=== PATIENT | female | born 1990 | race Asian ===

== ENCOUNTER 2018-03-10 06:22 | Inpatient (IN) | payer BC, OTHER ==
[~2018-03-10] VITALS: Ht 162.6 cm; Wt 72.7 kg
[2018-03-10] MEDS: LACTATED RINGERS 1,000 ML IV SCH ×2 (06:31→08:45)
[2018-03-10] MEDS ORDERED: OXYTOCIN 30U/ 0.9% NaCL 500ML 500 ML IV ONE (06:31)
[2018-03-10] MEDS ORDERED: MISOPROSTOL 200 MCG TABLET ONE (06:32)
[2018-03-10] MEDS ORDERED: NEWBORN KIT ONE (06:32)
[2018-03-10] MEDS ORDERED: LIDOCAINE 1%, 50ML ONE (06:32)
[2018-03-10] MEDS ORDERED: FENTANYL/BUPIV./NS/PF 250 ML EPIDCONT SCH (06:36)
[2018-03-10] MEDS ORDERED: LACTATED RINGERS 1,000 ML IV SCH (06:36)
[2018-03-10] MEDS ORDERED: OXYTOCIN 30U/ 0.9% NaCL 500ML 500 ML ONE ×2 (06:38→08:42)
[2018-03-10 06:53] LABS: BASOPHILS % (AUTO) 1 % (0-1); EOSINOPHILS % (AUTO) 4 % (1-7); LYMPHOCYTES % (AUTO) 29 % (22-44); MD NO; MEAN CORPUSCULAR HEMOGLOBIN 30.6 pg (27.0-34.8); MEAN CORPUSCULAR HGB CONC 33.7 g/dL (32.4-35.8); MEAN CORPUSCULAR VOLUME 90.6 fL (80-100); MEAN PLATELET VOLUME 9.6 fL (7.4-10.4); MONOCYTES % (AUTO) 6 % (2-9); NEUTROPHILS # (AUTO) 5.93 x10^3/uL (1.8-6.8); NEUTROPHILS % (AUTO) 60 % (42-75); PLATELET COUNT 193 x10^3/uL (130-400); RED CELL DISTRIBUTION WIDTH 13.2 % (9.6-15.2)
[2018-03-10 06:58] LABS: MICROSCOPIC INDICATED
[2018-03-10] MEDS ORDERED: LACTATED RINGERS 1,000 ML IVBOLUS PRN (07:00)
[2018-03-10] MEDS ORDERED: FENTANYL PF 100 MCG/2ML IV PRN (07:00)
[2018-03-10] MEDS ORDERED: FENTANYL PF 100 MCG/2ML IVPush PRN (07:00)
[2018-03-10] MEDS ORDERED: ONDANSETRON 2MG/ML, 2ML IVPush PRN (07:00)
[2018-03-10 07:03] LABS: AMPHETAMINE SCREEN, URINE Negative (Negative); BARBITURATE SCREEN, URINE Negative (Negative); BENZODIAZEPINE SCREEN, URINE Negative (Negative); CANNABINOID SCREEN, URINE Positive (Negative); COCAINE SCREEN, URINE Negative (Negative); METHADONE SCREEN, URINE Negative (Negative); OPIATE SCREEN, URINE Negative (Negative)
[2018-03-10 07:04] LABS: ALBUMIN 2.3 g/dL (3.4-5.0); ANION GAP 8 mmol/L (5-15); BILIRUBIN, DIRECT 0.1 mg/dL (0.1-0.2); CALCIUM 8.8 mg/dL (8.5-10.1); CHLORIDE 110 mmol/L (98-107)
[2018-03-10] MEDS ORDERED: BUPIVACAINE 0.25% ONE (07:08)
[2018-03-10 07:12] LABS: ALANINE AMINOTRANSFERASE 21 U/L (12-78); ALKALINE PHOSPHATASE 187 U/L (45-117); BILIRUBIN,TOTAL 0.2 mg/dL (0.2-1.0); TOTAL PROTEIN 6.4 g/dL (6.4-8.2)
[2018-03-10] MEDS ORDERED: FENTANYL PF 100 MCG/2ML ONE (07:16)
[2018-03-10] MEDS ORDERED: IBUPROFEN 600 MG TABLET ONE (09:41)
[2018-03-10] MEDS: OXYTOCIN 30U/ 0.9% NaCL 500ML 500 ML IV SCH ×7 (10:55→20:55)
[2018-03-10] MEDS ORDERED: OXYcodone/APAP 5/325MG TABLET ONE (10:57)
[2018-03-10 11:00] VITALS: BP 132/89
[2018-03-10] MEDS ORDERED: MEASLES,MUMPS&RUBELLA VACC/PF 0.5 ML SQ PRN (11:00)
[2018-03-10] MEDS ORDERED: MISOPROSTOL 200 MCG TABLET PR PRN (11:00)
[2018-03-10] MEDS ORDERED: OXYcodone/APAP 5/325MG TABLET PO PRN ×2 (11:00)
[2018-03-10] MEDS ORDERED: BISACODYL 10 MG SUPP PR PRN (11:00)
[2018-03-10] MEDS ORDERED: ONDANSETRON 2MG/ML, 2ML IV PRN (11:00)
[2018-03-10] MEDS ORDERED: ACETAMINOPHEN 325 MG TABLET PO PRN ×2 (11:00)
[2018-03-10] MEDS ORDERED: CALCIUM CARBONATE 500 MG TAB.CHEW PO PRN (11:00)
[2018-03-10] MEDS ORDERED: morphine SULFATE 10 MG/ML, 1ML ONE (15:45)
[2018-03-10] MEDS ORDERED: ONDANSETRON 2MG/ML, 2ML ONE (15:50)
[2018-03-10] MEDS ORDERED: morphine SULFATE 10 MG/ML, 1ML IVPush PRN (16:00)
[2018-03-10 16:07] LABS: BASOPHILS # (AUTO) 0.04 x10^3/uL (0-0.1); BASOPHILS % (AUTO) 0 % (0-1); EOSINOPHILS # (AUTO) 0.03 x10^3/uL (0-0.4); EOSINOPHILS % (AUTO) 0 % (1-7); LYMPHOCYTES # (AUTO) 2.04 x10^3/uL (1-3.4); LYMPHOCYTES % (AUTO) 12 % (22-44); MD NO; MEAN CORPUSCULAR HEMOGLOBIN 31.1 pg (27.0-34.8); MEAN CORPUSCULAR HGB CONC 34.1 g/dL (32.4-35.8); MEAN CORPUSCULAR VOLUME 91.4 fL (80-100); MEAN PLATELET VOLUME 9.9 fL (7.4-10.4); MONOCYTES % (AUTO) 4 % (2-9); NEUTROPHILS # (AUTO) 14.26 x10^3/uL (1.8-6.8); NEUTROPHILS % (AUTO) 84 % (42-75); PLATELET COUNT 190 x10^3/uL (130-400); RED BLOOD COUNT 4.62 x10^6/uL (3.82-5.3); RED CELL DISTRIBUTION WIDTH 13.1 % (9.6-15.2)
[2018-03-10 16:16] LABS: ALANINE AMINOTRANSFERASE 24 U/L (12-78); ALBUMIN 2.4 g/dL (3.4-5.0); ANION GAP 10 mmol/L (5-15); CALCIUM 8.3 mg/dL (8.5-10.1); CHLORIDE 103 mmol/L (98-107); CREATININE 0.78 mg/dL (0.55-1.02)
[2018-03-10 16:20] LABS: ALKALINE PHOSPHATASE 195 U/L (45-117); BILIRUBIN,TOTAL 0.4 mg/dL (0.2-1.0); TOTAL PROTEIN 6.6 g/dL (6.4-8.2)
[2018-03-10 16:37] LABS: MICROSCOPIC NOT IND
[2018-03-10 16:48] LABS: TOTAL PROTEIN,URINE RANDOM 8 mg/dL (0-12)
[2018-03-10 16:52] LABS: CREATININE,URINE RANDOM < 13.00 mg/dL; PROTEIN/CREATININE RATIO,URINE 615 (0-200)
[2018-03-10 17:25] VITALS: BP 95/61
[2018-03-10 19:05] VITALS: BP 146/83
[2018-03-10] MEDS: DOCUSATE 100 MG CAPSULE PO PRN (19:11)
[2018-03-10] MEDS: IBUPROFEN 600 MG TABLET PO PRN (19:11)
[2018-03-10] MEDS ORDERED: HYDROcodone/APAP 5/325 TABLET PO PRN (20:30)
[2018-03-10] MEDS ORDERED: hydrOXyzine 10MG TABLET PO PRN (20:30)
[2018-03-10 23:23] VITALS: BP 95/57
[2018-03-11] MEDS: IBUPROFEN 600 MG TABLET PO PRN ×4 (01:42→23:44)
[2018-03-11 04:45] VITALS: BP 109/65
[2018-03-11] MEDS: OXYTOCIN 30U/ 0.9% NaCL 500ML 500 ML IV SCH ×2 (06:55→16:55)
[2018-03-11 07:40] VITALS: BP 110/69
[2018-03-11] MEDS: DOCUSATE 100 MG CAPSULE PO PRN (09:36)
[2018-03-11] MEDS: PRENATAL VIT/IRON/FA 1 EACH TABLET PO SCH (09:36)
[2018-03-11 16:52] VITALS: BP 127/77
[2018-03-11 20:45] VITALS: BP 116/7
[2018-03-12] MEDS: OXYTOCIN 30U/ 0.9% NaCL 500ML 500 ML IV SCH ×2 (02:55→12:55)
[2018-03-12] MEDS: IBUPROFEN 600 MG TABLET PO PRN ×2 (05:34→14:58)
[2018-03-12 07:30] VITALS: BP 115/73
[2018-03-12] MEDS: PRENATAL VIT/IRON/FA 1 EACH TABLET PO SCH (09:00)
[2018-03-12] MEDS ORDERED: IBUP-1222 PO (11:43)
[2018-03-12] MEDS ORDERED: DOCU-131 PO (11:43)
== END 2018-03-12 16:14 | disposition home or self-care (01) | DRG 775 ==
LOC: LDOP 06:22 → LDIP 06:31 → 2NW 10:55
PROVIDERS: ADMIT Obstetrics & Gynecology; ATTEND Obstetrics & Gynecology
PROC: 10E0XZZ Delivery of Products of Conception, External Approach (ICD-10-PCS; principal; 2018-03-10)
PROC: 0HQ9XZZ Repair Perineum Skin, External Approach (ICD-10-PCS; 2018-03-10)
PROC: 10H073Z Insertion of Monitoring Electrode into Products of Conception, Via Natural or Artificial Opening (ICD-10-PCS; 2018-03-10)
PROC: 4A1H74Z Monitoring of Products of Conception, Cardiac Electrical Activity, Via Natural or Artificial Opening (ICD-10-PCS; 2018-03-10)
DX: O34.211 Maternal care for low transverse scar from previous cesarean delivery (principal); O99.324 Drug use complicating childbirth; O76 Abnormality in fetal heart rate and rhythm complicating labor and delivery; F41.0 Panic disorder [episodic paroxysmal anxiety]; O99.344 Other mental disorders complicating childbirth; F12.90 Cannabis use, unspecified, uncomplicated; Z37.0 Single live birth; Z3A.38 38 weeks gestation of pregnancy; O70.0 First degree perineal laceration during delivery
CPT/HCPCS: 36415; 76805; 80053; 80307; 81001; 81003; 82248; 82570; 82803; 84156; 84550; 85025; 86850; 86900; 87086; 93005; G0378; J2405; J2270; J2590; J3010; J7120